=== PATIENT | female | born 1995 | race Caucasian/White ===

== ENCOUNTER 2024-03-01 05:59 | Emergency (ER) | payer MEDICAID ==
[~2024-03-01] VITALS: Ht 157.5 cm; Wt 77.3 kg
[2024-03-01 06:03] VITALS: TEMP 97.9
[2024-03-01 07:19] LABS: HCG SERUM QL POSITIVE
[2024-03-01] MEDS ORDERED: ONDA4TAB12 PO (07:38)
[2024-03-01 07:56] VITALS: BP 96/53; PULSE 70; RESP 16; O2SAT 98
== END 2024-03-01 07:58 | disposition home or self-care (01) ==
LOC: ER 06:00
DX: O21.9 Vomiting of pregnancy, unspecified (principal); Z3A.00 Weeks of gestation of pregnancy not specified
CPT/HCPCS: 36415; 84703; 99283

== ENCOUNTER 2024-03-08 19:31 | Emergency (ER) | payer MEDICAID ==
[~2024-03-08] VITALS: Ht 167.6 cm; Wt 77.3 kg
[~2024-03-08 19:31] MED LIST: ONDA4TAB12 PO
[2024-03-08 20:16] LABS: BASOPHILS # (AUTO) 0.1 X10'3 (0-0.2); BASOPHILS % (AUTO) 0.7 % (0-1); EOSINOPHILS % (AUTO) 0.3 % (0-6); HEMATOCRIT 41.4 % (35.0-45.0); HEMOGLOBIN 14.2 g/dl (12.0-16.0); LYMPHOCYTES # (AUTO) 0.8 X10'3 (1.1-4.8); LYMPHOCYTES % (AUTO) 10.2 % (21-51); MEAN CORPUSCULAR HEMOGLOBIN 30.9 PG (27.0-31.0); MEAN CORPUSCULAR HGB CONC 34.3 g/dL (33.0-36.5); MEAN CORPUSCULAR VOLUME 90.2 FL (78-98); MEAN PLATELET VOLUME 7.4 FL (7.4-10.4); MONOCYTES # (AUTO) 0.3 X10'3 (0-0.9); MONOCYTES % (AUTO) 3.7 % (2-12); NEUTROPHILS # (AUTO) 6.7 X10'3 (1.8-7.7); NEUTROPHILS % (AUTO) 85.1 % (42-75); PLATELET COUNT 328 X10'3 (140-440); RED BLOOD COUNT 4.59 X10'6 (4.20-5.60); RED CELL DISTRIBUTION WIDTH 12.5 % (11.5-14.5); WHITE BLOOD COUNT 7.9 X10'3 (4.5-11.0)
[2024-03-08] MEDS: diphenhydrAMINE 50 mg/ml inj IM ONE (20:28)
[2024-03-08] MEDS: metoclopramide 5 mg/ml inj IM ONE (20:28)
[2024-03-08 20:56] LABS: ALANINE AMINOTRANSFERASE 32 U/L (12-78); ALBUMIN 3.7 G/DL (3.4-5.0); ALBUMIN/GLOBULIN RATIO 0.7 (1.1-1.5); ALKALINE PHOSPHATASE 52 IU/L (46-116); ANION GAP 13 (8-16); ASPARTATE AMINO TRANSFERASE 14 U/L (10-37); BILIRUBIN,TOTAL 0.7 MG/DL (0.1-1.0); BLOOD UREA NITROGEN 11 MG/DL (7-18); BUN/CREATININE RATIO 12.8 (10.0-20.0); CHLORIDE 94 MMOL/L (99-107); CREATININE 0.86 MG/DL (0.40-0.90); GLUCOSE 101 MG/DL (70-104); LIPASE 19 U/L (16-77); SODIUM 133 MMOL/L (135-145); TOTAL CARBON DIOXIDE 25.7 MMOL/L (24-32); TOTAL PROTEIN 8.8 G/DL (6.4-8.2); eCRCL 90 ML/MIN; eGFR 78 ML/MIN
[2024-03-08 21:01] LABS: BETA HCG,QUANTITATIVE 61323 mIU/ml
[2024-03-08 22:03] LABS: CALCIUM 9.1 MG/DL (8.5-10.1)
[2024-03-08 22:13] LABS: HCG SERUM QL POSITIVE
[2024-03-08] MEDS: normal saline 1000ml 1,000 ML IV ONE (22:29)
[2024-03-08] MEDS ORDERED: METO-292 PO (22:33)
[2024-03-08 22:48] LABS: URINE AMPHETAMINE SCREEN NEGATIVE (Neg); URINE BARBITUATE SCREEN NEGATIVE (Neg); URINE BENZODIAZEPINES SCREEN NEGATIVE (Neg); URINE CANNABINOID SCREEN POSITIVE (Neg); URINE COCAINE SCREEN NEGATIVE (Neg); URINE METHADONE SCREEN POSITIVE (Neg); URINE OPIATE SCREEN NEGATIVE (Neg); URINE PHENCYCLIDINE SCREEN NEGATIVE (Neg)
[2024-03-08] MEDS: potassium bicarbonate/cit acid 25mEq tablet.effervescent PO STA (22:52)
[2024-03-08] MEDS ORDERED: ONDA4TAB12 PO (22:56)
[2024-03-08] MEDS: ondansetron/PF 4mg/2ml inj IV ONE (23:09)
[2024-03-08 23:21] VITALS: BP 108/65; PULSE 94; RESP 17; TEMP 99; O2SAT 95
[2024-03-08 23:25] LABS: BILIRUBIN,URINE SMALL (Neg); CLARITY,URINE CLEAR (Clear); COLOR,URINE YELLOW (Yellow); GLUCOSE, URINE NEGATIVE (Neg); KETONES,URINE >=80 mg/dl (Neg); LEUKOCYTE ESTERASE ,URINE NEGATIVE (Neg); NITRITES, URINE NEGATIVE (Neg); OCCULT BLOOD,URINE NEGATIVE (Neg); PROTEIN,URINE 30 mg/dl (Neg); UROBILINOGEN,URINE 0.2 E.U/dL (0.2-1.0)
[2024-03-08 23:30] LABS: UA COLLECTION TYPE URINAL
[2024-03-08 23:31] LABS: BACTERIA,URINE 1+ /HPF (Neg); MUCUS STRANDS MANY /LPF (Neg); RBC,URINE 0-2 /HPF (0-2); SQUAMOUS EPITHELIAL CELL,UR MANY /LPF (FEW); TRANSITIONAL EPI CELLS,URINE FEW /HPF; WBC,URINE 0-4 /HPF (0-4)
== END 2024-03-08 23:25 | disposition home or self-care (01) ==
LOC: ER 19:31
DX: O21.9 Vomiting of pregnancy, unspecified (principal); E87.6 Hypokalemia; E87.1 Hypo-osmolality and hyponatremia; Z79.899 Other long term (current) drug therapy
CPT/HCPCS: 36415; 80053; 80305; 81001; 83690; 84702; 84703; 85025; 96361; 96372; 96374; 99284; J1200; J2405; J2765; J7030